=== PATIENT | female | born 1940 | race Caucasian/White ===

== ENCOUNTER 2024-11-02 14:11 | Emergency (ER) | payer MEDICARE, OTHER, SELFPAY ==
[2024-11-02] VITALS (7 sets, daily range): BP systolic 118–158; BP diastolic 48–84; PULSE 86–102; RESP 16–24; TEMP 36.6–37.1; O2SAT 97–100; BMI 33.2
--- NOTE | 2024-11-02 14:22 | ED.RN ---
patient states after she was done eatin lunch everything went very blurry and then she lost consciousness. Patient friend states patient did not fall out of bed, did not hit her head, and her eyes were open but she was not responding to her name and had a distant look in her eyes. aso states it was very hot and they were eating outside.
--- NOTE | 2024-11-02 15:31 | EKG12_ITS ---
Test Reason : SYNCOPE Blood Pressure : */* mmHG Vent. Rate : 91 BPM Atrial Rate : 91 BPM P-R Int : 144 ms QRS Dur : 82 ms QT Int : 342 ms P-R-T Axes : 59 40 50 degrees QTcB Int : 420 ms Normal sinus rhythm Normal ECG Confirmed by GLENNY MONTALVO, CLAUDIO ([id number]), fan mail editor AMANDA NAVARRO ([id number]) on 11/05/2024 8:13:22 AM Referred By: AR/CG Confirmed By: CLAUDIO MURRIETA MD
--- NOTE | 2024-11-02 15:33 | EDS_ITS ---
HPI History of Present Illness Chief Complaint: Syncope Narrative Narrative: Patient is a 84-year-old female presenting to the emergency department for a syncopal event. Patient has a past medical history of hypertension, type 2 diabetes noninsulin dependent and macular degeneration. Patient states that she was at lunch today sitting on the patio in the sun when her vision became blurry and then she syncopized. Friend states that she was unconscious for about 45 seconds. Friend states that she vomited a little while she was unconscious. She was sitting down during the whole event. EMS was called and she was able to walk to the ambulance. She denies any chest pain, shortness of breath, lightheadedness, dizziness, palpitations before or after the event. She denies any abdominal pain. States she feels back to normal now. States this has not happened to her before. She reports she only had one cup of coffee and one glass of water today. Denies history of DVT or PE. Denies any recent travel, hospitalizations or surgeries. Denies any cancer history. Denies any alcohol use today. Denies any new medications. [facility] Medical History Macular degeneration Hypertension Diabetes Allergy/AdvReac Type Severity Reaction Status Date / Time codeine AdvReac Mild headache Verified 11/02/24 14:13 Social History Smoking Status: Former smoker ROS ROS ED ROS Narrative see HPI EXAM Physical Exam Narrative Exam Narrative: Vital signs: Reviewed General: Alert and orientedx3. No acute distress. HEENT: Head is normocephalic and atraumatic, sinuses nontender, pupils equal round and reactive. Nares are patent. Oropharynx and throat exams normal. Neck: Supple without lymphadenopathy nontender Cardiovascular: Regular rate and rhythm, no murmurs. No rubs or gallops. Normal S1 and S2 Respiratory: Clear to auscultation bilaterally. No wheezes, rales, rhonchi Abdominal: Soft and nontender. Normal bowel sounds. No guarding or rebound. Nonsurgical abdomen Extremities: No tenderness. No bruising. Normal range of motion. Normal sensation. Skin: No rash or redness. Neurological: Cranial nerves II through XII are grossly intact. Normal strength and sensation. Normal cerebellar function The rest of the physical exam is unremarkable Const Vital Signs: 11/02/24 14:15 11/02/24 14:17 11/02/24 15:12 Temperature 98.8 F Temperature Source Oral Pulse Rate 92 96 Pulse Rate [Lying] Pulse Rate [Sitting (for 1 minute prior to obtaining)] Pulse Rate [Standing (for 1 minute prior to obtaining)] Respiratory Rate 17 18 Respiratory Effort Normal Respiratory Pattern Normal Blood Pressure 127/48 H 142/73 H Blood Pressure [Lying] Blood Pressure [Sitting (for 1 minute prior to obtaining)] Blood Pressure [Standing (for 1 minute prior to obtaining)] Blood Pressure Mean 74 96 Blood Pressure Mean [Lying] Blood Pressure Mean [Sitting (for 1 minute prior to obtaining)] Blood Pressure Mean [Standing (for 1 minute prior to obtaining)] Pulse Ox 97 100 Oxygen Delivery Method Room Air Room Air 11/02/24 16:00 11/02/24 16:01 11/02/24 16:06 Temperature Temperature Source Pulse Rate 102 H 102 H Pulse Rate [Lying] 93 Pulse Rate [Sitting (for 1 minute prior to obtaining)] 100 Pulse Rate [Standing (for 1 minute prior to obtaining)] 100 Respiratory Rate 20 H 24 H Respiratory Effort Respiratory Pattern Blood Pressure 149/84 H 158/73 H Blood Pressure [Lying] 147/65 H Blood Pressure [Sitting (for 1 minute prior to obtaining)] 149/84 H Blood Pressure [Standing (for 1 minute prior to obtaining)] 158/73 H Blood Pressure Mean 105 101 Blood Pressure Mean [Lying] 92 Blood Pressure Mean [Sitting (for 1 minute prior to obtaining)] 105 Blood Pressure Mean [Standing (for 1 minute prior to obtaining)] 101 Pulse Ox 97 98 Oxygen Delivery Method Room Air Room Air 11/02/24 17:00 11/02/24 18:35 Temperature 98 F Temperature Source Pulse Rate 86 88 Pulse Rate [Lying] Pulse Rate [Sitting (for 1 minute prior to obtaining)] Pulse Rate [Standing (for 1 minute prior to obtaining)] Respiratory Rate 16 17 Respiratory Effort Respiratory Pattern Blood Pressure 118/66 132/77 H Blood Pressure [Lying] Blood Pressure [Sitting (for 1 minute prior to obtaining)] Blood Pressure [Standing (for 1 minute prior to obtaining)] Blood Pressure Mean 83 95 Blood Pressure Mean [Lying] Blood Pressure Mean [Sitting (for 1 minute prior to obtaining)] Blood Pressure Mean [Standing (for 1 minute prior to obtaining)] Pulse Ox 98 100 Oxygen Delivery Method Room Air NIHSS NIHSS Initial: 1a Level of Consciousness: 0 1b LOC Questions (Score 2 if aphasic/stupor): 0 1c LOC Commands (Only score 1st attempt): 0 2 Best Gaze (If aphasic, use reflexive mvmts.): 0 3 Visual: 0 4 Facial Palsy: 0 5 Motor Arm Right (UN = amputation/fusion): 0 5 Motor Arm Left: 0 6 Motor Leg Right: 0 6 Motor Leg Left: 0 7 Limb ataxia (Only + if out of proportion): 0 8 Sensory (Aphasia/stupor=0 or 1, coma=2): 0 9 Best Language: 0 10 Dysarthria (mute, coma=2, intubated=UN): 0 11 Extinction and Inattention (only scored if +): 0 Total Score: 0 MDM MDM MDM Narrative Medical decision making narrative: Patient is an 84-year-old female presenting to the emergency department for a syncopal event. Patient was seen and examined. Vitals are stable. Patient resting in bed comfortably no acute distress. Differential includes but is not limited to: Vasovagal, dehydration, ACS, cardiac dysrhythmia, electrolyte disturbance, stroke, less likely PE. Patient has no shortness of breath, chest pain, recent prolonged travel, hypoxia or tachycardia. CBC with no leukocytosis and a normal hemoglobin. BMP with mild hyperglycemia 160. Mild elevation in BUN of 31, normal creatinine. Slightly elevated BUN to creatinine ratio. Patient denies any melena or bright red blood per rectum. Fluid bolus given. Urinalysis with small amount of leukocyte esterase, WBC and only 1+ bacteria, patient is asymptomatic has no dysuria, hematuria, frequency or urgency. I do not think this is a urinary tract infection, urine culture will be sent. Chest x-ray reviewed by myself, no opacities, pneumothorax or widened mediastinum. Radiology read with no acute radiographic abnormalities. CT of the brain negative for any acute intracranial abnormalities. Troponin within normal limits as well. EKG shows normal sinus rhythm with no ischemic changes. No dysrhythmia. I discussed the negative workup with the patient and friend at bedside. Given the patient's poor p.o. intake today, sitting in the sun on the patio and prodromal symptoms, I think it is likely vasovagal in nature. Recommended continued aggressive fluid intake at home and follow up with PCP as soon as possible. Patient discharged from the Emergency Department. I do not feel that the patient's evaluation reveals any acute reason for admission at this time. I instructed them to either follow-up with their primary care physician or promptly return to the Emergency Department for reevaluation should symptoms worsen or new symptoms develop. I explained what symptoms would indicate the need to return to the emergency department. Shared decision making was used. The patient voiced understanding of the treatment plan and is agreeable with it. Clinical impression: syncope History & Record Review Discussion w/independent historian: Patient Lab Data Attestation: I reviewed the patient's lab results. Labs: Laboratory Results - last 24 hr 11/02/24 11/02/24 13:50 15:53 WBC 10.4 RBC 3.96 L Hgb 12.6 Hct 38.5 MCV 97.2 MCH 31.8 MCHC 32.7 RDW Std Deviation 46.0 H RDW Coeff of Mirna 12.9 Plt Count 261 MPV 9.6 Immature Gran % (Auto) 0.400 Neut % (Auto) 62.8 Lymph % (Auto) 28.4 [place] % (Auto) 7.3 Eos % (Auto) 0.7 Baso % (Auto) 0.4 Absolute Neuts (auto) 6.5 Absolute Lymphs (auto) 2.95 Nucleated RBC % 0 Sodium 140 Potassium 4.7 Chloride 105 Carbon Dioxide 20.4 L Anion Gap 15 BUN 31 H Creatinine 1.18 Estim Creat Clear Calc 33.18 L Est GFR (MDRD) Non-Af 46 L BUN/Creatinine Ratio 26.4 H Glucose 160 H Calcium 9.6 Troponin T High Sens 12 Urine Color Yellow Urine Clarity Sl. Cloudy Urine pH 5.0 Ur Specific [place] 1.025 Urine Protein 30 H Urine Glucose (UA) Normal Urine Ketones Negative Urine Occult Blood Negative Urine Nitrite Negative Urine Bilirubin Negative Urine Urobilinogen Normal Ur Leukocyte Esterase 25 H Urine RBC 0-5 SEEN Urine WBC 5-10 SEEN Ur Squamous Epith Cells 0-5 SEEN Urine Bacteria 1+ Hyaline Casts 0-5 SEEN Urine Mucus 0 SEEN Radiography Chest X-Ray - ED: 2 View, Read by ED Physician, Normal, No Acute Disease and No Infiltrates Diagnostic Testing: Clinical Impression(s) from Imaging Studies Brain CT 11/02/24 16:24 IMPRESSION: 1. Generalized brain atrophy. 2. No acute intracranial hemorrhage, midline shift or mass effect. If symptoms persist, further evaluation with MRI is recommended. 3. Mild small vessel ischemic/degenerative changes. Reading Location: [facility] Chest X-Ray 11/02/24 16:25 IMPRESSION: No acute cardiopulmonary process. Reading Location: [facility] Discharge Plan Triage Chief Complaint: Syncope ED Provider: Bonita Ariza Dx/Rx/DC Orders Clinical Impression: Syncope, Dehydration Instructions: What Is Syncope, Causes of Syncope Primary Care Provider: Care Physician,No Primary Referrals: Maggi Ordoñez MD [Med Staff - [employer], Internal Medicine] - 2 Days Referral Note: Needs BMP rechecked Care Physician,No Primary [Primary Care Provider, Medical] Activity Restrictions/Additional Instructions: You need to follow-up with your primary care doctor on Tuesday for recheck of your BMP to check your kidney levels. Your evaluation in the Emergency Department did not reveal any acute reason for admission. However, I want to emp hasize that you may be early in the course of a disease process or illness even if it is not present. For this reason you should follow-up within 24 hours for reevaluation with either your primary care physician or if necessary back here in the Emergency Department. You should return to the Emergency Department immediately if your symptoms worsen or new symptoms develop. Print Language: Thai Disposition Disposition: Home, Self Care Discharge Date/Time: 11/02/24 18:35
[2024-11-02] MEDS: 0.9% Normal Saline (1000mL) 1,000 ML 1000 ML IV (15:51)
[2024-11-02 15:59] LABS: Hematocrit 38.5 % (37-47); Hemoglobin 12.6 g/dL (12.0-15.0); Immature Granulocytes Count 0.040 X10^3/uL (0.0-0.0); Mean Corp Hgb Conc 32.7 g/dL (32-36); Mean Corpuscular Volume 97.2 fL (81-99); Mean Platelet Vol. 9.6 fl (6.2-12.0); NRBC Flagged by Analyzer 0 % (0-5); Platelet Count 261 K/mm3 (150-450); RBC Distribution Width CV 12.9 % (11.6-14.6); RBC Distribution Width SD 46.0 fl (35.1-43.9); Red Blood Count 3.96 M/mm3 (4.2-5.4); White Blood Count 10.4 K/mm3 (4.4-11.0)
[2024-11-02 16:00] LABS: Mucous, Urine 0 SEEN /hpf (<or=2+)
[2024-11-02 16:24] LABS: Color, Urine Yellow (Yellow); Glucose, Dipstick Normal (Normal); Ketone-Dipstick Negative (Negative); Leukocyte Esterase-Dipstick 25 /ul (Negative); Nitrite-Dipstick Negative (Negative); Occult Blood-Urine Negative /ul (Negative); Protein-Dipstick 30 mg/dl (Negative); Specific Gravity, Urine 1.025 (1.002-1.030); Urine Bilirubin Dipstick Negative (Negative)
--- NOTE | 2024-11-02 16:24 | CT_ITS ---
EXAM: CT Head Without Intravenous Contrast CLINICAL INDICATION: SYNCOPE TECHNIQUE: Axial computed tomography images of the head/brain without intravenous contrast. This CT exam was performed using one or more of the following dose reduction techniques: automated exposure control, adjustment of the mA and/or kV according to patient size, and/or use of iterative reconstruction technique. COMPARISON: No relevant prior studies available. FINDINGS: BRAIN AND EXTRA-AXIAL SPACES: The cerebral and cerebellar sulci are prominent consistent with brain atrophy. No acute intracranial hemorrhage, midline shift or mass effect. If symptoms persist, further evaluation with MRI is recommended. Mild areas of decreased attenuation in the deep cerebral white matter are consistent with mild small vessel ischemic/degenerative changes. BONES/JOINTS: Unremarkable. No acute fracture. SOFT TISSUES: Unremarkable. SINUSES: Mucous retention cysts of the left maxillary sinus. MASTOID AIR CELLS: Unremarkable as visualized. No mastoid effusion. CT/Brain/Head without Contrast IMPRESSION: 1. Generalized brain atrophy. 2. No acute intracranial hemorrhage, midline shift or mass effect. If symptoms persist, further evaluation with MRI is recommended. 3. Mild small vessel ischemic/degenerative changes. Reading Location: [id number]
--- NOTE | 2024-11-02 16:25 | RAD_ITS ---
EXAM: XR Chest, 1 View CLINICAL INDICATION: SYNCOPE TECHNIQUE: Frontal view of the chest. COMPARISON: No relevant prior studies available. FINDINGS: LUNGS AND PLEURAL SPACES: Unremarkable. No consolidation. No pneumothorax. HEART: Unremarkable. No cardiomegaly. MEDIASTINUM: Unremarkable. Normal mediastinal contour. BONES/JOINTS: Unremarkable. No acute fracture. RAD/Chest PA and Lateral IMPRESSION: No acute cardiopulmonary process. Reading Location: [id number]
[2024-11-02 16:35] LABS: Troponin T High Sensitivity 12 ng/L (<=14)
[2024-11-02 16:38] LABS: Anion Gap 15 (5-15); BUN 31 mg/dL (4-19); BUN/Creat Ratio 26.4 RATIO (10-20); Calcium,Total 9.6 mg/dL (7.6-11.0); Carbon Dioxide 20.4 mmol/L (21.0-32.0); Chloride 105 mmol/L (98-108); Estimated Creatinine Clearance 33.18 ml/min (50-250); Glucose 160 mg/dL (70-99); Potassium 4.7 mmol/L (3.3-5.1)
[2024-11-02 17:29] LABS: Squamous Epithelial Cells - UA 0-5 SEEN /hpf (5-10)
[2024-11-02 17:30] LABS: Red Blood Cells-Urine 0-5 SEEN /hpf (0-5)
== END 2024-11-02 18:35 | disposition home or self-care (01) ==
PROVIDERS: Emergency Provider Student in an Organized Health Care Education/Training Program; Visit Provider Student in an Organized Health Care Education/Training Program
DX: R55 Syncope and collapse (principal); E11.9 Type 2 diabetes mellitus without complications; I10 Essential (primary) hypertension; Z87.891 Personal history of nicotine dependence; E86.0 Dehydration
CPT/HCPCS: 70450; 71046; 80048; 81001; 84484; 85025; 93005; 96360; 96361; 99285; A4216